=== PATIENT | female | born 1940 | race African-American/Black ===

== ENCOUNTER 2018-12-18 11:02 | Outpatient (CLI) | payer OTHER ==
[2018-12-18] MEDS ORDERED: BARIUM SULFATE 135 ML SUSP.RECON (E-Z-HD) PO ONE (11:51)
== END 2018-12-18 21:14 | disposition home or self-care (01) ==
LOC: SUS 11:02
PROVIDERS: ATTEND Otolaryngology
DX: R22.1 Localized swelling, mass and lump, neck (principal); R13.10 Dysphagia, unspecified
CPT/HCPCS: 74230; 76536-TC; 92611-GN